=== PATIENT | female | born 1965 | race African-American/Black ===

== ENCOUNTER 2017-06-30 09:41 | Day surgery (SDC) | payer OTHER ==
[2017-06-18 09:45] VITALS: BMI 21.9
[2017-06-30] MEDS ORDERED: oxyCODONE HCL 5 MG TABLET PO PRN ×2 (09:58)
[2017-06-30] MEDS ORDERED: ONDANSETRON 4 MG/2 ML VIAL IVPUSH PRN (09:58)
[2017-06-30] MEDS ORDERED: LACTATED RINGERS SOLUTION 1,000 ML IV SCH (10:00)
[2017-06-30] MEDS ORDERED: BUPIVACAINE HCL 0.25% 125 MG/50 ML VIAL ONE (10:16)
[2017-06-30] MEDS ORDERED: LIDOCAINE HCL 2% (20ML MULTI-DOSE VIAL) NR ONE (10:17)
[2017-06-30] MEDS ORDERED: MIDAZOLAM HCL 2 MG/2 ML SINGLE DOSE VIAL ONE (12:50)
[2017-06-30] MEDS ORDERED: PROPOFOL 20 ML ONE (12:50)
[2017-06-30] MEDS ORDERED: LIDOCAINE HCL/PF 2% SDV 5ML VIAL ONE (12:56)
[2017-06-30] MEDS ORDERED: ONDANSETRON 4 MG/2 ML VIAL ONE (13:19)
[2017-06-30] MEDS ORDERED: KETOROLAC TROMETHAMINE 30 MG/1 ML VIAL ONE (13:19)
[2017-06-30 14:02] VITALS: TEMP 97.8
[2017-06-30 14:26] VITALS: BP 118/67; PULSE 88
--- NOTE | 2017-06-30 18:42 | OP ---
DATE OF OPERATION: 06/30/2017 PREOPERATIVE DIAGNOSIS: Right long trigger finger. POSTOPERATIVE DIAGNOSIS: Right long trigger finger. OPERATIVE PROCEDURE: Right long trigger finger release. ANESTHESIA: Local with sedation. COMPLICATIONS: None. INDICATIONS FOR PROCEDURE: The patient presented with the above finding and was indicated for operative treatment. In the preoperative examination, she did have a slight flexion contracture of the PIP joint. She remained triggering. Risks, benefits, alternatives were discussed with her at length, and proper informed consent was obtained. PROCEDURE: After proper identification of patient and correct operative site, the patient was brought to the operating room, placed supine on the table, prominences were well padded. Sedation was given by the anesthesiologist. Local anesthesia was given, 2% lidocaine. The right upper extremity was prepped and draped in usual sterile fashion, Esmarch bandage to exsanguinate right upper extremity. Tourniquet was inflated to 250 mmHg. A longitudinal incision was made over A1 rakesh of the long finger. Incision was taken sharply through the skin with blunt dissection of the subcutaneous tissues. A1 rakesh was identified and found to be with significant synovitis and was bulging, and it was divided at the A1 rakesh. Flexor tendon had significant tendinosis and was debrided. The patient was then awakened from sedation and asked to flex and extend her finger and no further triggering was noted and she only had a slight flexion contracture of PIP joint remaining. The wound was irrigated with saline and repaired with a 5-0 nylon suture. Sterile dressings were applied. Patient brought to the recovery room in stable condition. She tolerated procedure well. Mai [id number] MTDD
== END 2017-06-30 14:27 | disposition home or self-care (01) ==
LOC: FASU 09:41
PROVIDERS: ATTEND Orthopaedic Surgery Hand Surgery
PROC: 0LN70ZZ Release Right Hand Tendon, Open Approach (ICD-10-PCS; principal; 2017-06-30 13:15)
DX: M65.331 Trigger finger, right middle finger (principal)
CPT/HCPCS: 82962; 84703

== ENCOUNTER 2020-07-24 09:28 | Day surgery (SDC) | payer OTHER ==
[2020-07-15 12:38] VITALS: BMI 21.9
[2020-07-24 09:59] VITALS: TEMP 98.8
[2020-07-24] MEDS ORDERED: PROPOFOL 20 ML ONE (10:13)
[2020-07-24] MEDS ORDERED: fentaNYL CITRATE 250 MCG/5 ML VIAL ONE (10:13)
[2020-07-24] MEDS ORDERED: MIDAZOLAM HCL 2 MG/2 ML SINGLE DOSE VIAL ONE (10:14)
[2020-07-24] MEDS ORDERED: LIDOCAINE HCL 2% (20ML MULTI-DOSE VIAL) ONE (10:27)
[2020-07-24] MEDS ORDERED: LIDOCAINE HCL 2% (50ML VIAL) NR ONE (10:41)
[2020-07-24 12:36] VITALS: BP 114/68; PULSE 72
== END 2020-07-24 13:00 | disposition home or self-care (01) ==
LOC: FASU 09:28
PROVIDERS: ATTEND Orthopaedic Surgery Hand Surgery
PROC: 0LN80ZZ Release Left Hand Tendon, Open Approach (ICD-10-PCS; principal; 2020-07-24 11:15)
DX: M65.332 Trigger finger, left middle finger (principal)
CPT/HCPCS: 82962